=== PATIENT | female | born 1985 | race Caucasian/White ===

== ENCOUNTER 2021-01-10 05:41 | Day surgery (SDC) | payer BC ==
[2021-01-07 13:37] LABS: BASOPHILS 0.3 % (0-2); EOSINOPHILS 4.5 % (0-7); HEMATOCRIT 35.4 % (36.0-48.0); HEMOGLOBIN 11.3 g/dL (12-16); IMMATURE GRANULOCYTES 0.3 % (0-5); LYMPHOCYTE ABS# 2.74 10x3/uL (1.18-3.74); LYMPHOCYTES 26.5 % (15-50); MCH 25.4 pg (26.0-34.0); MCHC 31.9 g/dL (31.0-37.0); MCV 79.6 fL (80.0-100.0); MEAN PLATELET VOLUME 9.9 fL (7.4-10.4); MONOCYTES 6.6 % (2-11); NEUTROPHILS 61.8 % (40-80); PLATELET COUNT 322 10x3/uL (130-400); RBC 4.45 10x6/uL (4.00-5.40); RDW 15.5 % (11.5-14.5); WBC 10.4 10x3/uL (4.8-10.8)
[~2021-01-10] VITALS: Ht 162.6 cm; Wt 144.7 kg
[~2021-01-10 05:41] MED LIST: CENTRUM SILVER1 EAC3 PO; FARXIGA10 MG PO; FISH OIL 1,0001 CA1 PO; GLUCOPHAGE500 MG PO; ZOLOFT100 MG PO
[2021-01-10 06:32] VITALS: BP 155/91; Ht 162.6 cm; Wt 144.7 kg
[2021-01-10 06:42] LABS: HCG URINE NEGATIVE (NEGATIVE)
--- NOTE | 2021-01-10 09:43 | NUR ---
0939 IV DC'D. CATHETER TIP INTACT. NO BLEEDING AT SITE. BANDAID APPLIED.
--- NOTE | 2021-01-10 10:14 | NUR ---
1000 DISCHARGE INSTRUCTIONS REVIEWED WITH PATIENT AND HER . PT VOICES UNDERSTANDING OF INSTRUCTIONS.
--- NOTE | 2021-01-17 13:49 | OP ---
PATIENT NAME: VENUS KABA MEDICAL RECORD: [id number] :81 LOCATION:D[facility] ADMISSION DATE: SURGEON: RAFA DUTTA MD DATE OF OPERATION: 01/10/2021 PREOPERATIVE DIAGNOSIS: Menorrhagia. POSTOPERATIVE DIAGNOSIS: Menorrhagia. PROCEDURE: Hysteroscopy, dilation and curettage and NovaSure endometrial ablation. SURGEON: Rafa Dutta. ANESTHESIA: General endotracheal. INTRAVENOUS FLUIDS: Per anesthesia records. HYSTEROSCOPIC FLUID LOSS: Less than 50 mL of 0.9 normal saline. SPECIMENS: Included endometrial curettings. FINDINGS: 1. Grossly normal-appearing external genitalia and cervix. 2. Proliferative appearing endometrium. COMPLICATIONS: None apparent. DESCRIPTION OF PROCEDURE: The patient was taken to the operating room where general anesthesia was achieved without any difficulty. The patient was then prepped and draped in normal sterile fashion in the dorsal lithotomy position in the [facility]. The vagina was prepped and draped. The bladder was drained of approximately 100 mL of straw colored urine. A speculum was placed into the vagina and the cervix was grasped on its anterior lip with a single-tooth tenaculum. The patient was sounded to approximately 9 cm, dilation to approximately 9 mm was performed using the Hegar dilators. Hysteroscope was introduced into the endometrial canal and proliferative endometrium was noted. Curettage of the uterus was performed. At this point, the NovaSure ablation device was found to be active and was fully opened and then closed. Following calibration, the NovaSure endometrial ablator was placed into the uterus and deployed. Burn cycle was performed without complication. Following the ablative cycle, the NovaSure device was removed using the bow and arrow technique with good hemostasis noted from the cervical os. The single tooth tenaculum was removed. The patient tolerated the procedure well and was transferred to postanesthesia recovery stable without incident. TRANSINT:[id number] Voice Confirmation ID: [id number] DOCUMENT ID: [id number] OPERATIVE REPORT [id number] KABAVENUS RAFA DUTTA MD at 1349 CC: [id number] DICTATION DATE: 01/16/21 1431 FINANCIAL PLANNING ANALYST: 01/16/21 1521 [facility] 01/10/21 [place] [address]
== END 2021-01-10 10:10 | disposition home or self-care (01) ==
LOC: D.OPS 05:41
PROVIDERS: ATTEND Obstetrics & Gynecology
DX: N92.0 Excessive and frequent menstruation with regular cycle (principal); N83.201 Unspecified ovarian cyst, right side